=== PATIENT | female | born 1960 | race Hispanic/Latino ===

== ENCOUNTER 2017-02-15 20:55 | Observation (INO) | payer BC ==
[2017-02-15 21:03] VITALS: RESP 16
[2017-02-15] MEDS ORDERED: Sodium Chloride 0.9% 1,000 ML IV STA (21:13)
--- NOTE | 2017-02-15 21:24 | ED PDOC ---
HPI: Back Time Seen by Provider: 02/15/17 21:04 Chief Complaint (Nursing): Back Pain Chief Complaint (Provider): Back Pain s/p Fall History Per: Patient History/Exam Limitations: no limitations Onset/Duration Of Symptoms: Mins (30 min prior to arrival) Current Symptoms Are (Timing): Still Present Severity: Moderate Additional Complaint(s): Kourtney is a 56 y/o female who presents to the ED complaining of back pain after sustaining a fall 30 minutes prior to arrival. States she slipped and fell, striking the middle of her back against the ledge of the bathtub. Since then she reports having difficulty taking deep breaths. Denies any other injury, limb injury, head trauma, neck pain, or hematuria. PMD: Non H Provider Past Medical History Reviewed: Historical Data, Nursing Documentation, Vital Signs Vital Signs: Last Vital Signs Temp 98.3 F 02/15/17 20:58 Pulse 72 02/15/17 20:58 Resp 16 02/15/17 20:58 BP 115/82 02/15/17 20:58 Pulse Ox 100 02/15/17 20:58 - Family History Family History: States: Unknown Family Hx - Allergies Allergies/Adverse Reactions: Allergies Allergy/AdvReac Type Severity Reaction Status Date / Time No Known Allergies Allergy Verified 02/15/17 20:58 Review of Systems ROS Statement: Except As Marked, All Systems Reviewed And Found Negative Constitutional: Negative for: Other (Head trauma) Genitourinary Female: Negative for: Hematuria Musculoskeletal: Positive for: Back Pain. Negative for: Neck Pain Physical Exam - Reviewed Nursing Documentation Reviewed: Yes Vital Signs Reviewed: Yes - Physical Exam Appears: Positive for: Uncomfortable, In Acute Distress (Moderate painful distress) Head Exam: Positive for: ATRAUMATIC, NORMAL INSPECTION, NORMOCEPHALIC Skin: Positive for: Normal Color, Warm, Dry Eye Exam: Positive for: EOMI, Normal appearance, PERRL Neck: Positive for: Normal, Painless ROM Cardiovascular/Chest: Positive for: Regular Rate, Rhythm. Negative for: Murmur Respiratory: Positive for: Normal Breath Sounds. Negative for: Accessory Muscle Use, Respiratory Distress Gastrointestinal/Abdominal: Positive for: Soft, Tenderness (Mild LUQ tenderness) Back: Positive for: L CVA Tenderness. Negative for: Other (ecchymosis to the back or abdomen) Extremity: Positive for: Normal ROM, Capillary Refill (< 2 sec). Negative for: Pedal Edema, Deformity Neurologic/Psych: Positive for: Alert, Oriented. Negative for: Motor/Sensory Deficits - Laboratory Results Result Diagrams: 02/15/17 22:00 02/15/17 22:00 - ECG O2 Sat by Pulse Oximetry: 100 (RA) Pulse Ox Interpretation: Normal - Radiology X-Ray: Interpreted by Me (CXR) X-Ray Interpretation: No Acute Disease Medical Decision Making Medical Decision Making: Time: 21:11 Initial Plan: --Blood type and screen --CMP --CBC w/ differential --PTT --Prothrombin time --Urinalysis --CXR --CT Abdomen & Pelvis w/ IV contrast --CT Chest w/o contrast --Started on IV fluids with Morphine and Zofran --Admitted to ED-OBS s/p fall due to time-extensive work up Scribe Attestation: Documented by Natalia Pendleton, acting as a scribe for Kade Hernández PA-C Provider Scribe Attestation: All medical record entries made by the Scribe were at my direction and personally dictated by me. I have reviewed the chart and agree that the record accurately reflects my personal performance of the history, physical exam, medical decision making, and the department course for this patient. I have also personally directed, reviewed, and agree with the discharge instructions and disposition. ED OBSERVATION Date of observation admission: 02/15/17 Time of observation admission: 21:11 - Observation admission statement Patient is being placed in observation because:: Back pain s/p fall - Goals of Observation Goals of observation are:: Time-extensive work up - Progress Note Progress Note: 02/15/17 Time: 21:11 --Patient in room. Pending IV fluids and meds, CT scans, and CXR Disposition - Clinical Impression Clinical Impression: Back pain - Patient ED Disposition Is Patient to be Admitted: Transfer of Care (Signed out to Nolan SCHWARZ pending CT results and final disposition.) - Disposition Disposition Time: 00:00 Condition: STABLE Forms: [employer] ([place])
[2017-02-15 22:31] LABS: RBC URINE 15 /hpf (0-3); URINE BACTERIA RARE (<OCC); URINE BILIRUBIN NEGATIVE (NEGATIVE); URINE BLOOD SMALL (NEGATIVE); URINE COLOR YELLOW (YELLOW); URINE GLUCOSE (UA) NEG (Normal); URINE KETONE NEGATIVE (NEGATIVE); URINE LEUKOCYTE ESTERASE LARGE Leu/uL (Negative); URINE PROTEIN NEGATIVE (NEGATIVE); URINE UROBILINOGEN 0.2-1.0 mg/dL (0.2-1.0); WBC URINE 15 /hpf (0-5)
[2017-02-15 22:33] LABS: BASO # 0.1 K/uL (0.0-0.2); BASO % 1.2 % (0.0-2.0); EOS # 0.4 K/uL (0.0-0.7); EOS % 3.7 % (0.0-4.0); HEMATOCRIT 40.7 % (34.0-47.0); LYMPH # 2.2 K/uL (1.0-4.3); LYMPH % 23.3 % (20.0-40.0); MEAN CELL VOLUME 95.5 fl (81.0-99.0); MEAN CORPUSCULAR HEMOGLOBIN 31.7 pg (27.0-31.0); MEAN CORPUSCULAR HGB CONC 33.2 g/dL (33.0-37.0); MEAN PLATELET VOLUME 8.5 fl (7.2-11.7); MONO # 0.6 K/uL (0.0-0.8); MONO % 5.9 % (0.0-10.0); NEUT # 6.3 K/uL (1.8-7.0); NEUT % 65.9 % (50.0-75.0); NRBC % 0.1 % (0.0-0.0); RED CELL DISTRIBUTION WIDTH 13.7 % (11.5-14.5); WHITE BLOOD COUNT 9.6 K/uL (4.8-10.8)
[2017-02-15 22:43] LABS: ALB/GLOB RATIO 1.4 (1.0-2.1); ALKALINE PHOSPHATASE 73 U/L (38-126); ALT/SGPT 33 U/L (9-52); AST/SGOT 31 U/L (14-36); BILIRUBIN,TOTAL 0.6 mg/dl (0.2-1.3); BLOOD UREA NITROGEN 15 mg/dl (7-17); CALCIUM 9.3 mg/dL (8.4-10.2); CARBON DIOXIDE 27 mmol/L (22-30); CHLORIDE 103 mmol/L (98-107); GFR AFRICAN-AMERICAN > 60; GLUCOSE,RANDOM 95 mg/dL (65-105); POTASSIUM 3.6 MMOL/L (3.6-5.0); SODIUM 144 mmol/l (132-148); TOTAL PROTEIN 8.7 G/DL (6.3-8.2)
[2017-02-15 22:54] LABS: PARTIAL THROMBOPLASTIN TIME 25.8 Seconds (25.6-37.1)
[2017-02-15] MEDS ORDERED: Sodium Chloride 0.9% 50 ML IV ONE (23:14)
[2017-02-15] MEDS ORDERED: Iohexol 300 100 ML IJ ONE (23:14)
--- NOTE | 2017-02-16 00:16 | ED PDOC ---
- Laboratory Results Result Diagrams: 02/15/17 22:00 02/15/17 22:00 - ECG O2 Sat by Pulse Oximetry: 100 (RA) Pulse Ox Interpretation: Normal Medical Decision Making Medical Decision Making: Case was signed out to data analyst report writer from TEJAL Hernández pending CT CT chest: FINDINGS: Lungs: Minimal atelectasis. No consolidation. Pleural space: No pneumothorax. No significant effusion. Heart: No cardiomegaly. No significant pericardial effusion. Thyroid: 1.3 x 0.8 x 1.0 cm nodule LEFT lobe of thyroid. Subcentimeter nodule RIGHT lobe of thyroid. Bones/joints: Small calcifications about shoulders. Degenerative changes of spine. Fracture LEFT and, 11th ribs. Soft tissues: Unremarkable. Vasculature: Unremarkable. No aneurysm. Lymph nodes: No pathologically enlarged lymph nodes. IMPRESSION: 1. Rib fractures. 2. Thyroid nodule. Followup as clinically warranted. 3. Incidental/non-acute findings are described above CT abd/pelvis: FINDINGS: ABDOMEN: Liver: Unremarkable. No mass. Gallbladder and bile ducts: No calcified stones. No ductal dilation. Pancreas: Probable pancreatic divisum. Mild dilatation of pancreatic duct. Spleen: No splenomegaly. Adrenals: Mild A. of LEFT adrenal gland. Kidneys and ureters: Few too small to characterize lesions within kidneys. No hydronephrosis. Stomach and bowel: No definite mural thickening. No obstruction. Appendix: No findings to suggest acute appendicitis. PELVIS: Bladder: Unremarkable. Reproductive: 4.0 x 3.5 x 4.1 cm hypodense lesion within RIGHT adnexal region. ABDOMEN and PELVIS: Intraperitoneal space: No significant fluid collection. No free air. Bones/joints: Degenerative changes of spine. Soft tissues: Tiny umbilical hernia containing fat. Vasculature: Minimal atherosclerotic disease. No aneurysm. Lymph nodes: No pathologically enlarged lymph nodes. IMPRESSION: 1. No CT evidence of visceral injury. 2. Adnexal lesion, indeterminate. Recommend ultrasound. 3. Mild pancreatic ductal dilatation. Suggest MRCP. 4. Incidental/non-acute findings are described above. Patient is aware of all diagnostic testing results. Patient still has mild pain , Toradol 30 mg IV administered. Incidental findings as noted above were discussed with patient and patient was given copy of CT report and was instructed to follow up with primary doctor. Incentive spirometer given. Patient given prescriptions for Motrin and Percocet for pain control. Primary care doctor follow-up in 1-2 days. Patient is aware she can return to ED any time if acutely worse. Disposition Counseled Patient/Family Regarding: Studies Performed, Diagnosis, Need For Followup, Rx Given - Clinical Impression Clinical Impression: Rib fractures - POA Present On Arrival: None - Disposition Disposition: Routine/Home Disposition Time: 01:30 Condition: STABLE
--- NOTE | 2017-02-16 01:08 | CT ---
EXAM: CT Chest With Intravenous Contrast CLINICAL HISTORY: 56 years old, female; Pain; Abdominal pain; Generalized; Chest pain; Radiating; Additional info: Trauma TECHNIQUE: Axial computed tomography images of the chest with intravenous contrast. All CT scans at this facility use one or more dose reduction techniques, viz.: automated exposure control; ma/kV adjustment per patient size (including targeted exams where dose is matched to indication; i.e. head); or iterative reconstruction technique. Coronal and sagittal reformatted images were created and reviewed. CONTRAST: 95 mL of [id number] administered intravenously. COMPARISON: No relevant prior studies available. FINDINGS: Lungs: Minimal atelectasis. No consolidation. Pleural space: No pneumothorax. No significant effusion. Heart: No cardiomegaly. No significant pericardial effusion. Thyroid: 1.3 x 0.8 x 1.0 cm nodule LEFT lobe of thyroid. Subcentimeter nodule RIGHT lobe of thyroid. Bones/joints: Small calcifications about shoulders. Degenerative changes of spine. Fracture LEFT and, 11th ribs. Soft tissues: Unremarkable. Vasculature: Unremarkable. No aneurysm. Lymph nodes: No pathologically enlarged lymph nodes. IMPRESSION: 1. Rib fractures. 2. Thyroid nodule. Followup as clinically warranted. 3. Incidental/non-acute findings are described above. EXAM: CT Abdomen and Pelvis With Intravenous Contrast CLINICAL HISTORY: 56 years old, female; Pain; Abdominal pain; Generalized; Chest pain; Radiating; Additional info: Trauma TECHNIQUE: Axial computed tomography images of the abdomen and pelvis with intravenous contrast. All CT scans at this facility use one or more dose reduction techniques, viz.: automated exposure control; ma/kV adjustment per patient size (including targeted exams where dose is matched to indication; i.e. head); or iterative reconstruction technique. Coronal and sagittal reformatted images were created and reviewed. CONTRAST: 95 mL of [id number] administered intravenously. COMPARISON: No relevant prior studies available. FINDINGS: ABDOMEN: Liver: Unremarkable. No mass. Gallbladder and bile ducts: No calcified stones. No ductal dilation. Pancreas: Probable pancreatic divisum. Mild dilatation of pancreatic duct. Spleen: No splenomegaly. Adrenals: Mild A. of LEFT adrenal gland. Kidneys and ureters: Few too small to characterize lesions within kidneys. No hydronephrosis. Stomach and bowel: No definite mural thickening. No obstruction. Appendix: No findings to suggest acute appendicitis. PELVIS: Bladder: Unremarkable. Reproductive: 4.0 x 3.5 x 4.1 cm hypodense lesion within RIGHT adnexal region. ABDOMEN and PELVIS: Intraperitoneal space: No significant fluid collection. No free air. Bones/joints: Degenerative changes of spine. Soft tissues: Tiny umbilical hernia containing fat. Vasculature: Minimal atherosclerotic disease. No aneurysm. Lymph nodes: No pathologically enlarged lymph nodes. IMPRESSION: 1. No CT evidence of visceral injury. 2. Adnexal lesion, indeterminate. Recommend ultrasound. 3. Mild pancreatic ductal dilatation. Suggest MRCP. 4. Incidental/non-acute findings are described above.
[2017-02-16 02:04] VITALS: BP 99/47; PULSE 76; TEMP 98.8; O2SAT 99
--- NOTE | 2017-02-16 14:16 | RAD ---
HISTORY: trauma COMPARISON: None. FINDINGS: LUNGS: No active pulmonary disease. PLEURA: No significant pleural effusion identified, no pneumothorax apparent. CARDIOVASCULAR: Normal. OSSEOUS STRUCTURES: No significant abnormalities. VISUALIZED UPPER ABDOMEN: Normal. OTHER FINDINGS: None. IMPRESSION: No active disease.
== END 2017-02-16 02:07 | disposition home or self-care (01) ==
LOC: H.ER 20:55 → H.EROBSV 21:11
PROVIDERS: ADMIT Emergency Medicine; ATTEND Emergency Medicine
DX: S22.32XA Fracture of one rib, left side, initial encounter for closed fracture (principal); W01.198A Fall on same level from slipping, tripping and stumbling with subsequent striking against other object, initial encounter; M54.9 Dorsalgia, unspecified; N39.0 Urinary tract infection, site not specified; E04.1 Nontoxic single thyroid nodule; Y92.002 Bathroom of unspecified non-institutional (private) residence as the place of occurrence of the external cause; Y93.89 Activity, other specified
CPT/HCPCS: 71010; 71260; 74177; 80053; 81003; 85025; 85610; 85730; 86850; 86900; 87086; 96374; 96375; 99283; G0378; J1885; J2270; J2405; J7040; Q9967